=== PATIENT | male | born 1955 | race Caucasian/White ===

== ENCOUNTER 2017-05-23 18:17 | Inpatient (IN) | payer OTHER, SELFPAY ==
[~2017-05-23 18:17] MED LIST: ISOVUE-370 76%-LOCM 1 ML ONE
[2017-05-23 19:10] LABS: #Basophils 0.1 thou/uL (0.0-0.2); #Eosinphils 0.1 thou/uL (0.0-0.7); #Lymphocytes 4.1 thou/uL (1.20-3.40); #Monocytes 0.6 thou/uL (0.11-0.59); #Neutrophils 4.7 thou/uL (1.40-6.50); %Basophils 1.2 % (0.0-1.0); %Eosinophils 0.8 % (0.0-10.0); %Lymphocytes 42.9 % (21.0-51.0); %Monocytes 6.4 % (0.0-10.0); %Neutrophils 48.6 % (42.0-75.0); Hemoglobin 16.6 g/dL (14.0-18.0); Mean Corpuscular Hemoglobin 28.8 pg (27.0-31.0); Mean Corpuscular Volume 84.9 fl (80.0-94.0); Mean Platelet Volume 7.1 fL (7.4-10.4); Platelet Count 205 thou/uL (130-400); RBC Distribution Width 11.8 % (11.5-14.5); Red Blood Cell (RBC) Count 5.74 mill/uL (4.70-6.10); White Blood Cell (WBC) Count 9.6 thou/uL (4.8-10.8)
[2017-05-23 19:31] LABS: ALT (SGPT) 17 U/L (8-55); AST (SGOT) 14 U/L (5-34); Albumin 4.4 g/dL (3.4-4.8); Alkaline Phosphatase 123 U/L (40-150); Anion Gap 13 mmol/L (10-20); BUN (Urea Nitrogen) 10 mg/dL (8.4-25.7); Bilirubin, Total 0.4 mg/dL (0.2-1.2); Calc. Creatinine Clearance 0 mL/min (70-130); Carbon Dioxide 27 mmol/L (23-31); Chloride 102 mmol/L (98-107); Estimated GFR-MDRD 89; Globulin 3.8 g/dL (2.4-3.5); Glucose 244 mg/dL (80-115); Potassium 4.4 mmol/L (3.5-5.1); Protein, Total 8.2 g/dL (5.8-8.1); Sodium 138 mmol/L (136-145)
[2017-05-23 21:38] LABS: INR-International Normal Ratio 1.1
[2017-05-23] MEDS ORDERED: Lidocaine Viscous Sol 2% 15 ml UD Cup ONE (21:40)
[2017-05-23] MEDS ORDERED: Milk Of Magnesia 30 ML UDCUP ONE (21:40)
[2017-05-23 21:50] LABS: CKMB 1.6 ng/mL (0-6.6)
--- NOTE | 2017-05-23 22:49 | CT ---
CTA OF THE CHEST AND ABDOMEN WITH CONTRAST 05/23/17 HISTORY: Abdominal and back pain with bowel incontinence and epigastric pain. TECHNIQUE: Multiple contiguous axial images were obtained in a CTA of the chest and abdomen with contrast for ao rtic dissection protocol. 3D sagittal and coronal MIP reformats were performed. FINDINGS: There is a 1.6 cm spiculated mass in the right lower lobe. Emphysematous changes are seen in the lung s. No other pulmonary nodules are seen. No pleural effusion or pneumothorax are seen. The heart is normal in size without focal cardiac abnormality. No hilar or mediastinal lymphadenopath y is seen. There is a small hiatal hernia. The chest wall soft tissues are unremarkable. The bones of thorax are unremarkable. The liver, gallbladder, adrenal glands, spleen, and pancreas are unremarkable. There are subcentimete r hypodensities in both kidneys which likely represent small cysts. No free air, free fluid, or stran ding changes are seen in the abdomen. No abdominal adenopathy is seen. The aorta is normal in caliber without evidence of dissection or aneurysmal dilatation. The celiac tr unk, SMA, and LOI are patent. A single renal artery is seen on each side without significant atherosc lerotic disease. IMPRESSION: 1. No evidence of aortic dissection or aneurysmal dilatation. 2. Right lower lobe spiculated mass. This is concerning for primary malignancy. A PET CT is jose mmended on a nonemergent outpatient basis to evaluate for hypermetabolic activity. 3. Bilateral renal cysts. POS: [facility]
[2017-05-23] MEDS ORDERED: Nitroglycerin 2% Ointment 1 INCH/1 GM Packet ONE (23:07)
[2017-05-24] MEDS ORDERED: Acetaminophen 325 MG TAB PO PRN (00:22)
[2017-05-24] MEDS ORDERED: HYDROcodone/Acetaminophen 5/325 mg Tablet PO PRN (00:22)
[2017-05-24] MEDS ORDERED: HYDROcodone/Acetaminophen 10/325 mg Tablet PO PRN (00:22)
[2017-05-24] MEDS ORDERED: Ondansetron ODT 4 MG TAB PO PRN (00:22)
[2017-05-24] MEDS ORDERED: Dextrose 50% Abboject 50 ML SYRINGE SLOW IVP PRN ×2 (00:24)
[2017-05-24] MEDS ORDERED: Dextrose 5% in Water 1,000 ML IV PRN (00:24)
[2017-05-24 05:19] LABS: #Basophils 0.1 thou/uL (0.0-0.2); #Eosinphils 0.1 thou/uL (0.0-0.7); #Lymphocytes 4.6 thou/uL (1.20-3.40); #Monocytes 0.6 thou/uL (0.11-0.59); #Neutrophils 4.2 thou/uL (1.40-6.50); %Eosinophils 1.1 % (0.0-10.0); %Lymphocytes 47.6 % (21.0-51.0); %Monocytes 6.7 % (0.0-10.0); %Neutrophils 43.6 % (42.0-75.0); Hemoglobin 16.1 g/dL (14.0-18.0); Mean Corpuscular HGB CONC 33.3 g/dL (32.0-36.0); Mean Corpuscular Hemoglobin 28.4 pg (27.0-31.0); Mean Corpuscular Volume 85.5 fl (80.0-94.0); Mean Platelet Volume 7.3 fL (7.4-10.4); Platelet Count 186 thou/uL (130-400); RBC Distribution Width 11.8 % (11.5-14.5); Red Blood Cell (RBC) Count 5.64 mill/uL (4.70-6.10); White Blood Cell (WBC) Count 9.6 thou/uL (4.8-10.8)
[2017-05-24 05:45] LABS: Anion Gap 13 mmol/L (10-20); BUN (Urea Nitrogen) 10 mg/dL (8.4-25.7); Calc. Creatinine Clearance 131 mL/min (70-130); Calcium 9.6 mg/dL (7.8-10.44); Carbon Dioxide 26 mmol/L (23-31); Cardiac Risk 4.9 (Less than 4.5); Chloride 103 mmol/L (98-107); Cholesterol 137 mg/dl (< 200 Desired); Estimated GFR-MDRD Greater than 90; Glucose 199 mg/dL (80-115); HDL Cholesterol 28 mg/dL (>60 Neg Risk); LDL Cholesterol, Calculated 79 mg/dL; Lipase 100 U/L (8-78); Potassium 3.8 mmol/L (3.5-5.1); Sodium 138 mmol/L (136-145); Triglycerides 152 mg/dL (Less than 150)
[2017-05-24 05:47] LABS: Troponin I 0.018 ng/mL (< 0.028)
--- NOTE | 2017-05-24 08:21 | HP ---
CHIEF COMPLAINT: Abdominal discomfort. HISTORY OF PRESENT ILLNESS: The patient is a 61-year-old male, who presents to ER with about 2 weeks ' history of epigastric pain radiating to the back. The patient denied any chest pain. The patient states that the pain has been on and off and was 9/10 upon arrival to the ER, he did get a GI cocktai l as well as some nitro paste. He states his pain is now 6/10. Otherwise, he had been going to an [facility] and had gotten PPIs for his abdominal pain, which he states has not helped. PAST MEDICAL HISTORY: The patient is significant for hypertension, type 2 diabetes. PAST SURGICAL HISTORY: The patient has had prior appendectomy. SOCIAL HISTORY: Negative for alcohol use. The patient admits to half a pack a day smoking. ALLERGIES: No known drug allergies. HOME MEDICATIONS: The patient is currently on Lantus 30 in the morning and 25 at night. He is also on Protonix, aspirin 325 mg once a day, Crestor 40 mg once a day and lisinopril 20 mg a day. REVIEW OF SYSTEMS: Please see HPI. Rest of 14-point review of systems is negative. LABORATORY AND X-RAY DATA: CBC: White count is 9.6, H&H 16 and 48 with platelets of 205. PT was 14 , INR is 1.1. Sodium is 138, potassium 4.4, chloride 102, bicarbonate 27, BUN 10, creatinine 0.8 wit h a calcium of 10, glucose of 244. Lipase is 94. PHYSICAL EXAMINATION: VITAL SIGNS: Blood pressure 168/71, pulse 87, respirations 16, patient's temperature is 98.0. The p atient is satting 98% on room air. GENERAL: The patient is awake, alert, oriented x3, in no acute distress. HEENT: Pupils are equal, round, reactive to light and accommodation. Extraocular muscles are intact . TMs are clear. No throat. NECK: No JVD, no lymphadenopathy. CARDIOVASCULAR: Regular rate and rhythm. LUNGS: Clear to auscultation bilaterally. ABDOMEN: Positive bowel sounds, soft, somewhat tender in the epigastric area. No rebound, rigidity. No organomegaly. EXTREMITIES: No clubbing, cyanosis or edema. NEUROLOGIC: Cranial nerves II-XII are grossly intact. PSYCHIATRIC: The patient is cooperative and answering questions appropriately. ASSESSMENT AND PLAN: 1. Abdominal pain, unclear etiology. We will go ahead and scan him with the CAT scan of the abdomen and pelvis. Trend lipase, which is only 93. However, if this trends up, then may be early pancreat itis, we will go ahead and trend his troponins; however, doubtful this is abdominal pain from a cardi ac etiology. The patient denied any chest pain. 2. Type 2 diabetes. Continue on Lantus, continue on insulin sliding scale. 3. Hypertension. Continue on lisinopril. 4. Code status: The patient is FULL CODE.
[2017-05-24] MEDS ORDERED: Non-Formulary Item 1 EACH (Levemir Flexpen [Levemir Flexpen] 30 UNIT) SC SCH (09:00)
[2017-05-24] MEDS ORDERED: FLU VACC QS2017-18 36 mo. & older 0.5 ML SYRINGE IM ONE (09:00)
[2017-05-24] MEDS ORDERED: Famotidine 20 MG TAB PO SCH (09:00)
[2017-05-24] MEDS: Enoxaparin Sodium 30 MG/0.3 ML SYRINGE SC SCH (09:23)
--- NOTE | 2017-05-24 12:05 | ULT ---
RIGHT UPPER QUADRANT SONOGRAM: HISTORY: Upper abdomen pain. COMPARISON: CT abdomen from 05/23/17. FINDINGS: Gallbladder has a normal appearance without evidence of stones. The common duct is 0.5 cm diameter. Liver is unremarkable without focal mass or intrahepatic biliary dilatation. No free fluid is appar ent. Subtle echogenicity near the inferior pole of the right kidney is noted. No solid masses were seen on recent CT exam. IMPRESSION: No evidence of gallstones or biliary obstruction. POS: [facility]
--- NOTE | 2017-05-24 12:31 | PDOC.PN ---
- Subjective Encounter Start Date: 05/24/17 Encounter Start Time: 08:00 -: old records requested/rev c/o chest and epigastric abdominal pain, no fever, no cough - Objective Resuscitation Status: Resuscitation Status FULL:Full Resuscitation MAR Reviewed: Yes Vital Signs & Weight: Vital Signs (12 hours) Temp Pulse Resp BP BP Pulse Ox 05/24/17 08:00 97.7 F 65 18 174/84 H 95 05/24/17 04:16 98.2 F 58 L 16 143/65 H 94 L 05/24/17 00:49 97.4 F L 67 18 139/79 96 Weight Weight 192 lb 3.2 oz Result Diagrams: 05/24/17 04:10 05/24/17 04:10 Radiology Reviewed by me: Yes (CT dissection, US) EKG Reviewed by me: Yes (NSR) Phys Exam - Physical Examination Constitutional: NAD HEENT: PERRLA, moist MMs, sclera anicteric Neck: no JVD, supple Respiratory: no wheezing, no rales, no rhonchi Cardiovascular: RRR, no significant murmur, no rub Gastrointestinal: soft, non-tender, no distention, positive bowel sounds epigastric discomfort Musculoskeletal: no edema, pulses present Neurological: non-focal, normal sensation, moves all 4 limbs Psychiatric: normal affect, A&O x 3 Skin: no rash, normal turgor Dx/Plan (1) Epigastric abdominal pain Code(s): R10.13 - EPIGASTRIC PAIN Status: Acute (2) Chest pain Code(s): R07.9 - CHEST PAIN, UNSPECIFIED Status: Acute (3) Right lower lobe lung mass Code(s): R91.8 - OTHER NONSPECIFIC ABNORMAL FINDING OF LUNG FIELD Status: Acute (4) BPH (benign prostatic hyperplasia) Code(s): N40.0 - BENIGN PROSTATIC HYPERPLASIA WITHOUT LOWER URINRY TRACT SYMP Status: Chronic (5) DM2 (diabetes mellitus, type 2) Status: Chronic Qualifiers: (6) Dyslipidemia Code(s): E78.5 - HYPERLIPIDEMIA, UNSPECIFIED Status: Chronic (7) GERD (gastroesophageal reflux disease) Code(s): K21.9 - GASTRO-ESOPHAGEAL REFLUX DISEASE WITHOUT ESOPHAGITIS Status: Chronic (8) HLD (hyperlipidemia) Code(s): E78.5 - HYPERLIPIDEMIA, UNSPECIFIED Status: Chronic (9) Tobacco abuse Code(s): Z72.0 - TOBACCO USE Status: Chronic - Plan cont current plan of care, plan discussed w/ family * US GB is normal * will consult GI, he may need EGD * will consult pulmonary for lung mass, he will need atleast outpt follow up * today stress test * will monitor today * expecting discharge tomorrow * all test result discussed with family and pt * medication reviewed as below * symptomatic treatment. Review of Systems - Review of Systems Constitutional: negative: fever, chills, sweats, weakness, malaise, other ENT: negative: Ear Pain, Ear Discharge, Nose Pain, Nose Discharge, Nose Congestion, Mouth Pain, Mouth Swelling, Throat Pain, Throat Swelling, Other Respiratory: negative: Cough, Dry, Shortness of Breath, Hemoptysis, SOB with Excertion, Pleuritic Pain, Sputum, Wheezing Cardiovascular: negative: chest pain, palpitations, orthopnea, paroxysmal nocturnal dyspnea, edema, light headedness, other Gastrointestinal: Abdominal Pain. negative: Nausea, Vomiting, Diarrhea, Constipation, Melena, Hematochezia, Other Genitourinary: negative: Dysuria, Frequency, Incontinence, Hematuria, Retention , Other Musculoskeletal: negative: Neck Pain, Shoulder Pain, Arm Pain, Back Pain, Hand Pain, Leg Pain, Foot Pain, Other Skin: negative: Rash, Lesions, Albin, Bruising, Other - Medications/Allergies Allergies/Adverse Reactions: Allergies Allergy/AdvReac Type Severity Reaction Status Date / Time No Known Allergies Allergy Verified 05/24/17 01:52 Medications: Current Medications Acetaminophen (Tylenol) 650 mg PO Q4H PRN PRN Reason: Headache/Fever or Pain Hydrocodone Bitart/Acetaminophen ([place] 10/325) 1 tab PO Q4H PRN PRN Reason: Severe Pain (7-10) Last Admin: 05/24/17 08:06 Dose: 1 tab Hydrocodone Bitart/Acetaminophen ([place] 5/325) 1 tab PO Q4H PRN PRN Reason: Moderate Pain (4-6) Aspirin (Ecotrin) 325 mg PO DAILY [facility] Atorvastatin Calcium (Lipitor) 40 mg PO HS [facility] Dextrose/Water (Dextrose 50%) 25 gm SLOW IVP PRN PRN PRN Reason: Hypoglycemia Enoxaparin Sodium (Lovenox) 30 mg SC 0900 [facility] Last Admin: 05/24/17 09:23 Dose: 30 mg Glucagon (Glucagon) 1 mg IM PRN PRN PRN Reason: Hypoglycemia Dextrose/Water (D5w) 1,000 mls @ 0 mls/hr IV .Q0M PRN; As Directed PRN Reason: Hypoglycemia Insulin Detemir 30 units/ (Miscellaneous Medication) 0.3 mls @ 0 mls/hr SC HS [facility] Insulin Detemir 30 units/ (Miscellaneous Medication) 0.3 mls @ 0 mls/hr SC QAM [facility] Insulin Human Lispro (Humalog) 0 units SC .MODERATE SLIDING SC PRN PRN Reason: Moderate Correctional Scale Lisinopril (Zestril) 20 mg PO DAILY [facility] Metoprolol Tartrate (Lopressor) 12.5 mg PO BID [facility] Ondansetron HCl (Zofran Odt) 4 mg PO Q6H PRN PRN Reason: Nausea/Vomiting Pantoprazole Sodium (Protonix) 40 mg PO DAILY [facility] Tamsulosin HCl (Flomax) 0.4 mg PO DAILY [facility]
[2017-05-24] MEDS: Metoprolol Tartrate 25 MG TAB PO SCH ×2 (14:19→20:15)
[2017-05-24] MEDS: Insulin Detemir 100 UNITS/ML 30 UNITS in Pre-Filled Syringe 1 EACH SC SCH ×2 (14:20→21:05)
[2017-05-24] MEDS: HumaLOG 300 UNITS/3 ML VIAL SC PRN (15:03)
[2017-05-24] MEDS: Aspirin 325 mg Enteric Coated Tablet PO SCH (15:04)
[2017-05-24] MEDS: Tamsulosin HCl 0.4 MG CAP PO SCH (15:05)
[2017-05-24] MEDS: Lisinopril 20 MG TAB PO SCH (15:10)
--- NOTE | 2017-05-24 15:50 | NM ---
NUCLEAR MEDICINE CARDIAC SPECT WITH EF AND WALL MOTION: HISTORY: A 61-year-old male with a history of chest pain, hypertension, diabetes mellitus, and a smoking histo ry. An exercise sestamibi study was performed. The patient was injected with 29.1 mCi Technetium 99m sestamibi intravenously for stress images and t he patient was injected with 10.0 mCi Technetium 99m sestamibi intravenously for resting images. Multiple SPECT images in the short axis, vertical long axis, and horizontal long axis demonstrate a v yessy large area of absent activity in the inferior wall and inferior septum and lateral wall, evidence for a large area of infarct. No significant skin evidence for ischemia. TID 0.88. LHR 0.36. EDV 76 mL. EF is 49%. MYOCARDIAL PERFUSION WALL MOTION: No significant wall motion abnormality. IMPRESSION: Large area of infarct or scar involving the inferior wall, inferior septum, and posterior and lateral gibbons. No scan evidence for significant ischemia. POS: [facility]
[2017-05-24] MEDS ORDERED: Loperamide HCl 2 MG CAP PO SCH (18:00)
[2017-05-24] MEDS: Atorvastatin Calcium 40 MG TAB PO SCH (20:21)
--- NOTE | 2017-05-25 03:58 | CON ---
DATE OF CONSULTATION: 05/24/2017 CHIEF COMPLAINT: Abdominal pain. HISTORY OF PRESENT ILLNESS: Mr. Salvador is a 61-year-old man who complains of epigastric aching soheila n that is located in the epigastric periumbilical region and radiates through to his back between the shoulder blades. This pain started about 2-1/2 weeks ago. The pain comes and goes, but has also be en associated with change in his bowel habits. He became constipated and he was unable to pass the s tool. He took Fleets enema and still had a lot of straining and only passed small hard stools. He h as had no blood in the stool. When he lies down, he gets burning in the lower substernal region. He was started on pantoprazole for a couple weeks without significant help. He presented to GI clinic, couple of days ago and he was started on MiraLax daily and scheduled for an EGD and a colonoscopy fo r this Friday. The pain became more severe and discomfort was not variables, so he came onto the em ergency room yesterday. He had a CT scan dissection protocol of the chest and abdomen, which did not show any obvious abnormalities of the pancreas or liver. The lung did have a spiculated 1.6 cm mass in the right lower lobe. He had an ultrasound of the gallbladder, which was normal. He had a cardi ac stress test, which showed large area of old infarct or scar involving the inferior wall and inferi or septum and posterior and lateral gibbons, no reversible ischemia was identified by the stress test. He did have a small amount of vomiting this morning, but he has tolerated a turkey sandwich this [facility] without any problems. PAST MEDICAL HISTORY: He had a stroke last year. He has hypertension and diabetes. A stress test i ndicates that he had a prior myocardial infarction; however, there is no known history of this. PAST SURGICAL HISTORY: Appendectomy. He has never had a colonoscopy. SOCIAL HISTORY: Smoke 2 packs per day up until about 3 months ago, he has cut down to half a pack a day. No alcohol, no drugs. FAMILY HISTORY: Negative for GI malignancy. ALLERGIES: No known drug allergies. MEDICATIONS AT HOME: Pantoprazole and MiraLax. REVIEW OF SYSTEMS: Negative x10 systems reviewed except as stated in the history of present illness. LABORATORY DATA: White blood cell count 9.6, hemoglobin 16.1, platelets 186. INR 1.1, creatinine 0. 73, bilirubin 0.4, AST 14, ALT 17, alkaline phosphatase 123, albumin 4.4, lipase was 100 with an uppe r limit, normal of 78. IMPRESSION: 1. Epigastric to periumbilical abdominal pain that radiates through to his shoulder blades. He also has had symptoms suggestive of acid reflux with substernal burning when he lies down. His pain has not improved with proton pump inhibitor over the last couple of weeks. CT dissection protocol did no t show any obvious changes of pancreatitis or abnormalities in the liver. His lipase was only mildly elevated and not diagnostic of pancreatitis. He has had a new change in his bowel habits, it seems to be precipitating with a flare of this abdominal pain. He has felt constipated and has taken laxat rebel for only a small incomplete stools. The CT scan covers the abdomen, but not the pelvis. From w hat I can tell, the colon does not appear significantly distended with stool. There was some stool t naylor the right colon. Ultrasound of the abdomen was negative. Given his history of stroke and eviden ce of prior coronary artery disease by stress test and history of diabetes and hypertension, vascular disease of the mesentery would have to be kept in mind. His symptoms really are not affected by eat ing at all and are not suggestive of intestinal ischemia. Given the ongoing epigastric to periumbili carson abdominal pain and change in bowel habits. 2. We want to rule out peptic ulcer or gastric cancer, colon cancer, colitis or inflammatory bowel d isease. Also, evaluate for esophagitis or Mendoza's given the reflux type symptoms; however, they joseph ve not improved with proton pump inhibitor. RECOMMENDATIONS: 1. EGD and colonoscopy. This was scheduled as an outpatient for Friday. Given that he has come to the emergency room with unbearable pain and ongoing symptoms with negative workup, otherwise we will plan doing this while he is here as an inpatient. We will give him a clear liquid diet tomorrow and a bowel prep tomorrow afternoon for EGD and colonoscopy on Friday. 2. He was noted also incidentally to have a 1.6 cm spiculated right lower lobe lung mass. This is c oncerning for lung cancer. 3. If the endoscopy is negative, then symptomatic treatment for the chronic constipation with MiraLa x daily and a little bit longer with proton pump inhibitor would be indicated.
[2017-05-25] MEDS: HumaLOG 300 UNITS/3 ML VIAL SC PRN ×2 (06:03→11:20)
[2017-05-25] MEDS: Aspirin 325 mg Enteric Coated Tablet PO SCH (08:23)
[2017-05-25] MEDS: Insulin Detemir 100 UNITS/ML 30 UNITS in Pre-Filled Syringe 1 EACH SC SCH ×2 (08:23→22:04)
[2017-05-25] MEDS: Lisinopril 20 MG TAB PO SCH (08:23)
[2017-05-25] MEDS: Metoprolol Tartrate 25 MG TAB PO SCH ×2 (08:24→22:30)
[2017-05-25] MEDS: Enoxaparin Sodium 30 MG/0.3 ML SYRINGE SC SCH (08:24)
[2017-05-25] MEDS: Tamsulosin HCl 0.4 MG CAP PO SCH (08:24)
--- NOTE | 2017-05-25 10:46 | PDOC.PN ---
- Subjective Encounter Start Date: 05/25/17 Encounter Start Time: 07:10 pt has epigastric abdominal pain, no vomiting, no fever - Objective Resuscitation Status: Resuscitation Status FULL:Full Resuscitation MAR Reviewed: Yes Vital Signs & Weight: Vital Signs (12 hours) Temp Pulse Resp BP Pulse Ox 05/25/17 08:15 98.1 F 77 16 117/60 93 L 05/25/17 05:44 94 L 05/25/17 04:26 98.0 F 70 16 115/56 L 94 L Weight Weight 192 lb 3.2 oz I&O: 05/24/17 05/25/17 05/26/17 06:59 06:59 06:59 Intake Total 450 Output Total 3 Balance 447 Result Diagrams: 05/24/17 04:10 05/24/17 04:10 Additional Labs: Accuchecks 05/25/17 05/24/17 05/24/17 04:30 20:23 16:55 POC Glucose 208 H 253 H 216 H 05/24/17 14:54 POC Glucose 216 H EKG Reviewed by me: Yes (nsr) Phys Exam - Physical Examination Constitutional: NAD HEENT: PERRLA, moist MMs, sclera anicteric Neck: no JVD, supple Respiratory: no wheezing, no rales, no rhonchi Cardiovascular: RRR, no significant murmur, no rub Gastrointestinal: soft, non-tender, no distention, positive bowel sounds Musculoskeletal: no edema, pulses present Neurological: non-focal, normal sensation, moves all 4 limbs Psychiatric: normal affect, A&O x 3 Skin: no rash, normal turgor Dx/Plan (1) Epigastric abdominal pain Code(s): R10.13 - EPIGASTRIC PAIN Status: Acute (2) Chest pain Code(s): R07.9 - CHEST PAIN, UNSPECIFIED Status: Resolved (3) Right lower lobe lung mass Code(s): R91.8 - OTHER NONSPECIFIC ABNORMAL FINDING OF LUNG FIELD Status: Acute (4) BPH (benign prostatic hyperplasia) Code(s): N40.0 - BENIGN PROSTATIC HYPERPLASIA WITHOUT LOWER URINRY TRACT SYMP Status: Chronic (5) DM2 (diabetes mellitus, type 2) Status: Chronic Qualifiers: (6) Dyslipidemia Code(s): E78.5 - HYPERLIPIDEMIA, UNSPECIFIED Status: Chronic (7) GERD (gastroesophageal reflux disease) Code(s): K21.9 - GASTRO-ESOPHAGEAL REFLUX DISEASE WITHOUT ESOPHAGITIS Status: Chronic (8) HLD (hyperlipidemia) Code(s): E78.5 - HYPERLIPIDEMIA, UNSPECIFIED Status: Chronic (9) Tobacco abuse Code(s): Z72.0 - TOBACCO USE Status: Chronic - Plan cont current plan of care, plan discussed w/ family * GI to do EGD and colonoscopy tomorrow * Pulmonary to see today for lung mass * medication reviewed as below * symptomatic treatment * discussed with family * change to inpt status * dc tele * transfer to medical. Review of Systems - Review of Systems Constitutional: negative: fever, chills, sweats, weakness, malaise, other Eyes: negative: Pain, Vision Change, Conjunctivae Inflammation, Eyelid Inflammation, Redness, Other ENT: negative: Ear Pain, Ear Discharge, Nose Pain, Nose Discharge, Nose Congestion, Mouth Pain, Mouth Swelling, Throat Pain, Throat Swelling, Other Respiratory: negative: Cough, Dry, Shortness of Breath, Hemoptysis, SOB with Excertion, Pleuritic Pain, Sputum, Wheezing Cardiovascular: negative: chest pain, palpitations, orthopnea, paroxysmal nocturnal dyspnea, edema, light headedness, other Gastrointestinal: Abdominal Pain. negative: Nausea, Vomiting, Diarrhea, Constipation, Melena, Hematochezia, Other Genitourinary: negative: Dysuria, Frequency, Incontinence, Hematuria, Retention , Other Musculoskeletal: negative: Neck Pain, Shoulder Pain, Arm Pain, Back Pain, Hand Pain, Leg Pain, Foot Pain, Other Skin: negative: Rash, Lesions, Albin, Bruising, Other - Medications/Allergies Allergies/Adverse Reactions: Allergies Allergy/AdvReac Type Severity Reaction Status Date / Time No Known Allergies Allergy Verified 05/24/17 01:52 Medications: Current Medications Acetaminophen (Tylenol) 650 mg PO Q4H PRN PRN Reason: Headache/Fever or Pain Hydrocodone Bitart/Acetaminophen (Lena 10/325) 1 tab PO Q4H PRN PRN Reason: Severe Pain (7-10) Last Admin: 05/24/17 08:06 Dose: 1 tab Hydrocodone Bitart/Acetaminophen (Lena 5/325) 1 tab PO Q4H PRN PRN Reason: Moderate Pain (4-6) Aspirin (Ecotrin) 325 mg PO DAILY [facility] Last Admin: 05/25/17 08:23 Dose: 325 mg Atorvastatin Calcium (Lipitor) 40 mg PO [facility] Last Admin: 05/24/17 20:21 Dose: 40 mg Dextrose/Water (Dextrose 50%) 25 gm SLOW IVP PRN PRN PRN Reason: Hypoglycemia Enoxaparin Sodium (Lovenox) 30 mg SC 0900 [facility] Last Admin: 05/25/17 08:24 Dose: 30 mg Glucagon (Glucagon) 1 mg IM PRN PRN PRN Reason: Hypoglycemia Dextrose/Water (D5w) 1,000 mls @ 0 mls/hr IV .Q0M PRN; As Directed PRN Reason: Hypoglycemia Insulin Detemir 30 units/ (Miscellaneous Medication) 0.3 mls @ 0 mls/hr SC [facility] Last Admin: 05/24/17 21:05 Dose: 0.3 mls Insulin Detemir 30 units/ (Miscellaneous Medication) 0.3 mls @ 0 mls/hr SC QAM [facility] Last Admin: 05/25/17 08:23 Dose: 0.3 mls Insulin Human Lispro (Humalog) 0 units SC .MODERATE SLIDING SC PRN PRN Reason: Moderate Correctional Scale Last Admin: 05/25/17 06:03 Dose: 4 unit Lisinopril (Zestril) 20 mg PO DAILY [facility] Last Admin: 05/25/17 08:23 Dose: 20 mg Metoprolol Tartrate (Lopressor) 12.5 mg PO BID [facility] Last Admin: 05/25/17 08:24 Dose: 12.5 mg Ondansetron HCl (Zofran Odt) 4 mg PO Q6H PRN PRN Reason: Nausea/Vomiting Pantoprazole Sodium (Protonix) 40 mg PO DAILY [facility] Last Admin: 05/25/17 08:24 Dose: 40 mg Polyethylene Glycol/Electrolytes (Golytely) 4,000 ml PO 1600 [facility] Stop: 05/25/17 21:00 Tamsulosin HCl (Flomax) 0.4 mg PO DAILY [facility] Last Admin: 05/25/17 08:24 Dose: 0.4 mg
[2017-05-25] MEDS ORDERED: GoLYTELY 4,000 ml Bottle PO SCH (16:00)
--- NOTE | 2017-05-25 18:46 | PRG ---
DATE OF SERVICE: 05/25/2017 SUBJECTIVE: Mr. Salvador is still has epigastric pain. The pain he does state worsens when he exert s himself and he was asking for a handicapped sticker for this. OBJECTIVE: VITAL SIGNS: Temperature 97.8, pulse 71, and blood pressure 101/55. GENERAL: He is in no acute distress, alert, and oriented x3. EYES: Eyes have no scleral icterus. LUNGS: Clear to auscultation bilaterally. HEART: Regular rate and rhythm. ABDOMEN: Soft, nontender, nondistended. Bowel sounds are present. EXTREMITIES: No lower extremity edema. IMPRESSION: Epigastric pain to periumbilical pain that radiates through to his mid back. Imaging joseph s been negative for his obvious source for this. He has had change in bowel habits associated with t he pain and plan is for EGD and colonoscopy tomorrow. Vascular etiology can be considered since he d oes get more pain when he exerts himself; however, his pain does not actually worsen with eating per se. RECOMMENDATIONS: 1. EGD and colonoscopy tomorrow. 2. He is to be evaluated by Pulmonology for a lung mass.
[2017-05-25] MEDS: Atorvastatin Calcium 40 MG TAB PO SCH (22:02)
--- NOTE | 2017-05-26 06:01 | CON ---
DATE OF SERVICE: 05/25/2017 SERVICE: Pulmonary Medicine. REASON FOR CONSULTATION: Pulmonary nodule. HISTORY OF PRESENT ILLNESS: The patient is a 61-year-old [place] male with past medical history signi ficant for greater than 46-rlcg-horf history of smoking. He continues to smoke half a pack of cigare ttes on daily basis. He presented to the hospital for completely unrelated issue. He ultimately, he was discovered to have an incidentally discovered pulmonary nodule. He denies any weight loss, hemo ptysis or night sweats. He has had no previous imaging study looking at this thing. Otherwise, he i s in his usual state of health and has no specific complaints. He has never had any hemoptysis. PAST MEDICAL HISTORY: 1. Hypertension. 2. Type 2 diabetes mellitus. 3. History of cerebrovascular accident. PAST SURGICAL HISTORY: Appendectomy. SOCIAL HISTORY: Negative for alcohol or illicit drug use. He has got a greater than 10-isin-ykua hi story of smoking and currently has cut back to one-half pack on a daily basis. He has no exposure to chemicals, dust asbestos or tuberculosis that he is aware of. FAMILY HISTORY: Noncontributory. ALLERGIES: No known drug allergies. MEDICATIONS: List of his inpatient medications were reviewed. No specific updates were made at this time. REVIEW OF SYSTEMS: General, head, ears, eyes, nose, throat, cardiovascular, respiratory, GI, , mus culoskeletal, neurologic and skin is negative except as mentioned in the HPI. PHYSICAL EXAMINATION: VITAL SIGNS: Afebrile, pulse 82, blood pressure 138/72, respirations 18, saturation 97% on room air. GENERAL: The patient is awake, alert, in no apparent distress. LUNGS: Really good air entry. Minimally prolonged expiratory phase is present, but there is no whee zing or rhonchi appreciated. HEART: Normal rate, regular. ABDOMEN: Soft, nontender, nondistended. Bowel sounds are positive. MUSCULOSKELETAL: No cyanosis or clubbing. No pitting in the bilateral lower extremities. NEUROLOGIC: Grossly nonfocal. LABORATORY DATA: WBC 9.6, hemoglobin 16.1, platelets 186,000. INR 1.1. Blood sugars ranged from 11 4-253. Basic metabolic profile is unremarkable. Cardiac enzymes are negative x3. Lipase 94. IMAGING: CT dissection protocol demonstrates no evidence of an aortic dissection. There is an incid entally discovered right lower lobe pulmonary nodule. I do not think it has the appearance of spicul ation. It is more lobulated. There is an area of scar tissue that takes off and extends all the way to the lining of the lung. I think these are just interstitial prominence. There are minimal hurley es consistent with some degree of emphysema. ASSESSMENT: 1. Pulmonary nodule. 2. Emphysema, mild. 3. Tobacco abuse. DISCUSSION AND PLAN: I will have the patient return to clinic in the outpatient setting. In 3 month s, we will perform a PET scan. At that time, we will compare the before and after and see whether or not it is a hypermetabolic to decide our next move. I did discussed the option of doing a PET scan in [address] guided biopsy of this lesion soon. He thinks it is reasonable at this poin t, because this was incidentally discovered and is currently asymptomatic from a cancer perspective, but he thinks it is perfectly reasonable to wait, and I do too. He has no ongoing requirements for I npatient Pulmonary or Critical Care opinion. I did spend 10 minutes discussing the merits of making continued efforts of quitting smoking. He does understand how this impacts his lung health. He has no further requirements for Inpatient Pulmonary Critical Care opinion. As such, I will sign off. Pl ease call with additional questions or concerns moving forward.
[2017-05-26 08:36] VITALS: TEMP 98
[2017-05-26] MEDS: Insulin Detemir 100 UNITS/ML 30 UNITS in Pre-Filled Syringe 1 EACH SC SCH (09:41)
[2017-05-26] MEDS: Metoprolol Tartrate 25 MG TAB PO SCH (09:41)
[2017-05-26] MEDS: Aspirin 325 mg Enteric Coated Tablet PO SCH (09:41)
[2017-05-26] MEDS: Lisinopril 20 MG TAB PO SCH (09:41)
[2017-05-26] MEDS: Tamsulosin HCl 0.4 MG CAP PO SCH (09:42)
[2017-05-26] MEDS ORDERED: Ondansetron HCl/PF 4 MG/2 ML Vial IVP PRN (10:23)
[2017-05-26] MEDS ORDERED: Promethazine HCl 25 MG/ML VIAL SLOW IVP PRN (10:23)
[2017-05-26] MEDS ORDERED: Promethazine HCl 25 MG/ML VIAL IM PRN (10:23)
--- NOTE | 2017-05-26 11:28 | PDOC.PN ---
- Subjective Encounter Start Date: 05/26/17 Encounter Start Time: 07:10 Patient seen and examined. No new complaints. No overnight events - Objective Resuscitation Status: Resuscitation Status FULL:Full Resuscitation MAR Reviewed: Yes Vital Signs & Weight: Vital Signs (12 hours) Temp Pulse Resp BP 05/26/17 08:00 98 F 71 18 05/26/17 05:45 71 18 95/51 L Weight Weight 192 lb 3.2 oz I&O: 05/25/17 05/26/17 05/27/17 06:59 06:59 06:59 Intake Total 450 800 Output Total 3 Balance 447 800 Result Diagrams: 05/24/17 04:10 05/24/17 04:10 Additional Labs: Accuchecks 05/26/17 05/25/17 05/25/17 05:45 21:11 16:39 POC Glucose 130 H 164 H 114 H 05/25/17 13:04 POC Glucose 162 H Phys Exam - Physical Examination Constitutional: NAD HEENT: PERRLA, moist MMs, sclera anicteric Neck: no JVD, supple Respiratory: no wheezing, no rales, no rhonchi Cardiovascular: RRR, no significant murmur, no rub Gastrointestinal: soft, non-tender, no distention, positive bowel sounds Musculoskeletal: no edema, pulses present Neurological: non-focal, normal sensation, moves all 4 limbs Psychiatric: normal affect, A&O x 3 Skin: no rash, normal turgor Dx/Plan (1) Epigastric abdominal pain Code(s): R10.13 - EPIGASTRIC PAIN Status: Acute (2) Chest pain Code(s): R07.9 - CHEST PAIN, UNSPECIFIED Status: Resolved (3) Right lower lobe lung mass Code(s): R91.8 - OTHER NONSPECIFIC ABNORMAL FINDING OF LUNG FIELD Status: Acute (4) BPH (benign prostatic hyperplasia) Code(s): N40.0 - BENIGN PROSTATIC HYPERPLASIA WITHOUT LOWER URINRY TRACT SYMP Status: Chronic (5) DM2 (diabetes mellitus, type 2) Status: Chronic Qualifiers: (6) Dyslipidemia Code(s): E78.5 - HYPERLIPIDEMIA, UNSPECIFIED Status: Chronic (7) GERD (gastroesophageal reflux disease) Code(s): K21.9 - GASTRO-ESOPHAGEAL REFLUX DISEASE WITHOUT ESOPHAGITIS Status: Chronic (8) HLD (hyperlipidemia) Code(s): E78.5 - HYPERLIPIDEMIA, UNSPECIFIED Status: Chronic (9) Tobacco abuse Code(s): Z72.0 - TOBACCO USE Status: Chronic - Plan cont current plan of care * today EGD and colonoscopy * outpt follow up advised for pulmonary for PET scan * medication reviewed as below * symptomatic treatment. * possible discharge later today Review of Systems - Review of Systems ENT: negative: Ear Pain, Ear Discharge, Nose Pain, Nose Discharge, Nose Congestion, Mouth Pain, Mouth Swelling, Throat Pain, Throat Swelling, Other Respiratory: negative: Cough, Dry, Shortness of Breath, Hemoptysis, SOB with Excertion, Pleuritic Pain, Sputum, Wheezing Cardiovascular: negative: chest pain, palpitations, orthopnea, paroxysmal nocturnal dyspnea, edema, light headedness, other Gastrointestinal: negative: Nausea, Vomiting, Abdominal Pain, Diarrhea, Constipation, Melena, Hematochezia, Other Genitourinary: negative: Dysuria, Frequency, Incontinence, Hematuria, Retention , Other Musculoskeletal: negative: Neck Pain, Shoulder Pain, Arm Pain, Back Pain, Hand Pain, Leg Pain, Foot Pain, Other - Medications/Allergies Allergies/Adverse Reactions: Allergies Allergy/AdvReac Type Severity Reaction Status Date / Time No Known Allergies Allergy Verified 05/24/17 01:52 Medications: Current Medications Acetaminophen (Tylenol) 650 mg PO Q4H PRN PRN Reason: Headache/Fever or Pain Hydrocodone Bitart/Acetaminophen (Cedar 10/325) 1 tab PO Q4H PRN PRN Reason: Severe Pain (7-10) Last Admin: 05/24/17 08:06 Dose: 1 tab Hydrocodone Bitart/Acetaminophen (Cedar 5/325) 1 tab PO Q4H PRN PRN Reason: Moderate Pain (4-6) Aspirin (Ecotrin) 325 mg PO DAILY [facility] Last Admin: 05/26/17 09:41 Dose: Not Given Atorvastatin Calcium (Lipitor) 40 mg PO HS [facility] Last Admin: 05/25/17 22:02 Dose: Not Given Dextrose/Water (Dextrose 50%) 25 gm SLOW IVP PRN PRN PRN Reason: Hypoglycemia Enoxaparin Sodium (Lovenox) 30 mg SC 0900 [facility] Last Admin: 05/25/17 08:24 Dose: 30 mg Fentanyl (Pacu-Sublimaze) 50 mcg SLOW IVP Q10MIN PRN PRN Reason: Moderate to Severe Pain (6-10) Stop: 05/26/17 13:23 Glucagon (Glucagon) 1 mg IM PRN PRN PRN Reason: Hypoglycemia Dextrose/Water (D5w) 1,000 mls @ 0 mls/hr IV .Q0M PRN; As Directed PRN Reason: Hypoglycemia Insulin Detemir 30 units/ (Miscellaneous Medication) 0.3 mls @ 0 mls/hr SC HS [facility] Last Admin: 05/25/17 22:04 Dose: Not Given Insulin Detemir 30 units/ (Miscellaneous Medication) 0.3 mls @ 0 mls/hr SC QAM [facility] Last Admin: 05/26/17 09:41 Dose: Not Given Insulin Human Lispro (Humalog) 0 units SC .MODERATE SLIDING SC PRN PRN Reason: Moderate Correctional Scale Last Admin: 05/25/17 11:20 Dose: 10 unit Lisinopril (Zestril) 20 mg PO DAILY [facility] Last Admin: 05/26/17 09:41 Dose: Not Given Metoprolol Tartrate (Lopressor) 12.5 mg PO BID [facility] Last Admin: 05/26/17 09:41 Dose: Not Given Ondansetron HCl (Zofran Odt) 4 mg PO Q6H PRN PRN Reason: Nausea/Vomiting Ondansetron HCl (Pacu-Zofran) 4 mg IVP ONE PRN PRN Reason: Nausea/Vomiting Stop: 05/26/17 13:23 Pantoprazole Sodium (Protonix) 40 mg PO DAILY [facility] Last Admin: 05/26/17 09:42 Dose: Not Given Promethazine HCl (Pacu-Phenergan) 6.25 mg SLOW IVP ONE PRN PRN Reason: Nausea/Vomiting Stop: 05/26/17 13:23 Promethazine HCl (Pacu-Phenergan) 6.25 mg IM ONE PRN PRN Reason: Nausea/Vomiting Stop: 05/26/17 13:23 Tamsulosin HCl (Flomax) 0.4 mg PO DAILY [facility] Last Admin: 05/26/17 09:42 Dose: Not Given
[2017-05-26 11:49] VITALS: BP 134/78
[2017-05-26] MEDS ORDERED: Hyoscyamine Sulfate SL 0.125 mg Tablet PO PRN (11:49)
--- NOTE | 2017-05-26 12:56 | OP ---
DATE OF PROCEDURE: 05/26/2017 SURGEON: Dr. David Loja PROCEDURES: Esophagogastroduodenoscopy with biopsy and colonoscopy with snare polypectomy. PREOPERATIVE DIAGNOSES: Epigastric pain that radiates through to the back. He also has a change in bowel habits initially with constipation and then diarrhea with laxatives. PROCEDURE IN DETAIL: Informed consent was obtained from the patient. He was sedated with total intr avenous anesthesia. The bite block was placed and the endoscope was advanced easily to the second po rtion of the duodenum and retroflexion was performed in the stomach. The esophagus was normal. The GE junction was normal. The stomach had minimal erythematous gastritis in the antrum. Biopsies were obtained to rule out H. pylori. The remainder of the stomach was normal including retroflexed views . The pylorus and first and second portions of the duodenum were normal. Duodenal biopsies were abdulaziz en to rule out celiac disease. The patient was turned around. Rectal exam was performed and was normal. The colonoscope was advanc ed without difficulty to the terminal ileum. The mucosa of the terminal ileum was normal. The prepa ration quality was excellent. I removed a 5 mm polyp from the cecum. A 5 mm polyp from the ileoceca l valve. These were both removed by snare cautery polypectomy. Two polyps measuring 4-5 mm were rem cheryl from the hepatic flexure by cold snare polypectomy. Three polyps were removed from the transver se colon by cold snare polypectomy. These measured 5 mm each. A 4 mm polyp was removed by cold snar e from the sigmoid colon. The remainder of the colonic mucosa was normal. Retroflexed views in the rectum were normal. IMPRESSION: 1. Minimal antral gastritis, biopsied to rule out Helicobacter pylori. 2. Otherwise normal esophagogastroduodenoscopy. Duodenal biopsies taken to rule out celiac disease. 3. Two 5 mm polyps removed from the ileocecal valve by cold snare polypectomy. 4. Two polyps measuring 4-5 mm were removed from the hepatic flexure by cold snare polypectomy. 5. Three polyps removed from the transverse colon by cold snare polypectomy measuring 5 mm each. 6. A 4 mm polyp was removed from the sigmoid colon by cold snare polypectomy. 7. Otherwise normal colonoscopy to the terminal ileum. 8. The source for his abdominal pain is not identified by this exam. CT scan with aortic dissection protocol of the chest and abdomen was reviewed with Radiology. The [facility] and pancreas were well visualized with contrasted study. No abnormalities were seen here. Ultra sound of the gallbladder was negative. RECOMMENDATIONS: 1. Await histopathology. 2. Repeat colonoscopy in 3 years if three or more polyps are adenomatous. Repeat colonoscopy in fiv e years if one or two of the polyps are adenomatous. Repeat colonoscopy in 10 years if all the polyp s are hyperplastic. 3. I will give a trial of hyoscyamine 0.125 mg sublingually every 6 hours as needed. 4. Follow up in GI Clinic in 2 weeks. 5. Metamucil 1 tablespoon daily in a large glass of water.
--- NOTE | 2017-05-26 14:13 | DIS ---
PRIMARY CARE PHYSICIAN: Mark Morris MD DATE OF ADMISSION: 05/23/2017 DATE OF DISCHARGE: 05/26/2017 DISCHARGE DISPOSITION: Home. PRIMARY DISCHARGE DIAGNOSES: Epigastric abdominal pain status post EGD, right lower lobe lung mass, chest pain ruled out acute coronary syndrome. SECONDARY DISCHARGE DIAGNOSES: Tobacco abuse, hypertension, dyslipidemia, gastroesophageal reflux di sease, benign enlargement of prostate. PRIMARY PROCEDURE/OPERATION: Dr. Loja did upper endoscopy and found with minimal gastritis, colonos copy and Dr. Loja did snare polypectomy. RADIOLOGICAL INVESTIGATION: CT dissection showed incidentally right lower lobe spiculated mass. Str ess test was negative for any reversible ischemia. Abdominal ultrasound was normal. SIGNIFICANT LABORATORY DATA: WBC 9.6, hemoglobin 16.1, platelets 186. INR 1.1. Sodium 138, creatin ine 0.73, LDL 79. DISCHARGE MEDICATIONS: Aspirin 325 mg p.o. daily, Lipitor 40 mg p.o. at bedtime, Levemir insulin 30 units subcu. b.i.d., lisinopril 20 mg p.o. daily, Protonix 40 mg p.o. daily, and Flomax 0.4 mg p.o. d aily. CONTRAINDICATIONS: None. CODE STATUS: FULL CODE. INPATIENT CONSULTANTS: Dr. Maier was consulted for spiculated lung mass and he recommended outpati ent PET scan. Dr. Loja was consulted for epigastric abdominal pain and who did EGD and colonoscopy. TEST RESULTS PENDING ON DISCHARGE: Pathology report from stomach and polyp. DISCHARGE PLAN: Post hospital, the patient is advised to follow up with Dr. Mark Morris in 7 days. The patient is advised to follow with Dr. Maier in 1 month. The patient is also advised to follow with Dr. David Loja for pathology report. HOSPITAL COURSE: This is a 61-year-old male with above mentioned medical problems, who was admitted by . Please see his H&P for further details. The patient was mainly came to the hospital w ith epigastric abdominal pain. We did ultrasound gallbladder, which was normal. Patient was also joseph ving vague chest discomfort and that is why we did a stress test that came back normal. After that w e consulted sew on operator and they did endoscopy. Patient had minimal gastritis and polyp was r emoved from colon with colonoscopy. He had incidental diagnosis of spiculated lung mass with CT diss ection and that is why we consulted Pulmonary and they recommended outpatient PET scan. At this point, all test results discussed with the patient and he will follow up with above-mentioned consultants on discharge. The patient is seen and examined at bedside today. Please see my progress note from today for furthe r details. Patient is medically stable for discharge today.
[2017-05-26] MEDS ORDERED: PROPOFOL 200 MG/20 ML VIAL ONE (14:58)
[2017-05-27] MEDS ORDERED: Metamucil PACK PO SCH (09:00)
--- NOTE | 2017-06-28 19:19 | EKG ---
Test Reason : CHEST PAIN Blood Pressure : / mmHG Vent. Rate : 085 BPM Atrial Rate : 085 BPM P-R Int : 150 ms QRS Dur : 090 ms QT Int : 374 ms P-R-T Axes : 079 022 065 degrees QTc Int : 445 ms Normal sinus rhythm Normal ECG Confirmed by JAMIE PEACOCK ([id number]), advertising editor CECIL CHILEL ([id number] on 06/28/2017 7:19:08 PM Referred By: Confirmed By:JAMIE PEACOCK
== END 2017-05-26 14:01 | disposition home or self-care (01) | DRG 392 ==
LOC: ERS 18:17 → 2SW 23:28 → OBSVTOIN 23:28
PROVIDERS: ADMIT Hospitalist; ATTEND Hospitalist
PROC: 0DB68ZX Excision of Stomach, Via Natural or Artificial Opening Endoscopic, Diagnostic (ICD-10-PCS; principal; 2017-05-26)
PROC: 0DB98ZX Excision of Duodenum, Via Natural or Artificial Opening Endoscopic, Diagnostic (ICD-10-PCS; 2017-05-26)
PROC: 0DBH8ZX Excision of Cecum, Via Natural or Artificial Opening Endoscopic, Diagnostic (ICD-10-PCS; 2017-05-26)
PROC: 0DBL8ZX Excision of Transverse Colon, Via Natural or Artificial Opening Endoscopic, Diagnostic (ICD-10-PCS; 2017-05-26)
PROC: 0DBN8ZX Excision of Sigmoid Colon, Via Natural or Artificial Opening Endoscopic, Diagnostic (ICD-10-PCS; 2017-05-26)
DX: R10.13 Epigastric pain (principal); E11.9 Type 2 diabetes mellitus without complications; K29.70 Gastritis, unspecified, without bleeding; F17.210 Nicotine dependence, cigarettes, uncomplicated; K63.5 Polyp of colon; R07.9 Chest pain, unspecified; R91.8 Other nonspecific abnormal finding of lung field; I10 Essential (primary) hypertension; Z86.73 Personal history of transient ischemic attack (TIA), and cerebral infarction without residual deficits; N40.0 Benign prostatic hyperplasia without lower urinary tract symptoms; K21.9 Gastro-esophageal reflux disease without esophagitis
CPT/HCPCS: 36415; 36416; 71275; 76705; 78452; 80048; 80053; 80061; 82553; 83690; 84484; 85025; 85610; 88305; 88312; 90471; 90682; 90732; 93005; 93017; 94760; 96374; A9500; G0008; G0009; J1650; J1815; J2270; J2704; Q2036

== ENCOUNTER 2017-07-24 07:38 | Outpatient (CLI) | payer OTHER ==
--- NOTE | 2017-07-24 11:18 | PET ---
PET CT: HISTORY: 61-year-old male with solitary pulmonary nodule. A right lower lobe nodule was an incidental finding on CTA dated 05/23/17. TECHNIQUE: PET scanning with CT attenuation correction was performed from the base of the brain through the prox imal thighs following the intravenous administration of 12.6 mCi [id number] in the left antecubital iman a. Imaging was performed after an uptake interval of 50 minutes. FINDINGS: No abnormal FDG localization is seen in the 1.5 cm right lower lobe lung nodule. There is a hypermeta bolic mediastinal lymph node in the right paratracheal region close to the blanquita. This demonstrates a QSUV of 4.3. There are calcified mediastinal and right hilar lymph nodes. No deepali hypermetabolism is seen in the neck, hilar regions, axilla, abdomen, or pelvis. No hypermeta bolic pulmonary nodules, liver, adrenal, or skeletal lesions are identified. There is physiologic activity in the GI and tracts, and the visualized portions of the brain. The CT scan used for attenuation correction demonstrates no evidence of pleural effusions or ascites. There is sigmoid diverticulosis. Prostate is enlarged. A small hiatal hernia is present. IMPRESSION: 1. Nonhypermetabolic right lower lobe lung nodule should be monitored with follow-up CT scan in 3 mo nths. 2. Nonspecific hypermetabolic right paratracheal lymph node. POS: MIGUEL
== END 2017-07-24 07:39 | disposition home or self-care (01) ==
LOC: PET 07:38
PROVIDERS: ATTEND Internal Medicine
DX: R91.1 Solitary pulmonary nodule (principal)
CPT/HCPCS: 78815; A9552